=== PATIENT | female | born 1955 | race Caucasian/White ===

== ENCOUNTER 2016-12-26 13:07 | Emergency (ER) | payer MEDICARE ==
[~2016-12-26] VITALS: Ht 162.6 cm; Wt 87.3 kg
[~2016-12-26 13:07] MED LIST: ALBU18HF INH; AMLO5TAB2 PO; ASCO10007 PO; CERA453C2 TP; CHOL400T PO; CLOB15CR3 TOP; DEX1 PO; DOCU100C8 PO; FURO40TA4 PO; HYDR2TAB27 PO; LAMO100T2 PO; LEVO25TA5 PO; LORA10TA7 PO; MOME17SP NS; POTA10CA42 PO; PROP10DR4 OP; PROP20TA5 PO
[2016-12-26 13:14] VITALS: BP 167/75; PULSE 58; RESP 20; O2SAT 100
--- NOTE | 2016-12-26 14:19 | ED.REPORT ---
HPI-General Illness Date of Service Dec 26, 2016 ED Provider: Donna WELCH A 61 year old female with a history of hypertension, asthma and a pseudoseizure disorder presents to the ED complaining of dyspnea that began 3 weeks ago. Patient was seen at Urgent Care today and given nebulizer, CXR and brought to the ED with concern for pneumonia. Her symptoms initially began 3 weeks ago but she developed a productive cough approx one week ago. Patient reports that her coughing spasms leave her breathless. Associated symptoms include upper chest congestion, increasing constipation and nausea for the past 5 days. Her nausea is relieved by Gatorade and Broth. Nursing Notes Stated Complaint: DIZZY,WEAK Chief Complaint: Respiratory Complaints Nursing Notes Reviewed: Yes Allergies: Coded Allergies: Penicillins (Verified Allergy, Severe, UNKNOWN, 09/24/14) codeine (Verified Allergy, Severe, 09/24/14) hydrocodone (Verified Allergy, Severe, Abdominal Pain, 09/24/14) and dizziness and confusion infliximab (Verified Allergy, Severe, seizures, 12/26/16) morphine (Verified Allergy, Severe, Hallucinations, 09/24/14) oxycodone (Verified Allergy, Severe, Abdominal Pain, 09/24/14) and dizziness and confusion piroxicam (Verified Allergy, Severe, UNKNOWN, 09/24/14) propofol (Verified Allergy, Severe, 09/24/14) pt has known seizure disorder but believes propofol caused induction of seizures following colonoscopy in 2007 Sulfa (Sulfonamide Antibiotics) (Verified Allergy, Intermediate, Blistery yellow rash, 09/24/14) azathioprine (Verified Allergy, Intermediate, 09/24/14) carisoprodol (Verified Allergy, Intermediate, 09/24/14) etanercept (Verified Allergy, Intermediate, 09/24/14) levetiracetam (Verified Allergy, Intermediate, 09/24/14) lisinopril (Verified Allergy, Intermediate, 09/24/14) pregabalin (Verified Allergy, Intermediate, 09/24/14) diphenhydramine (Verified Allergy, Unknown, 09/24/14) hydrochlorothiazide (Verified Allergy, Unknown, 09/24/14) triamterene (Verified Allergy, Unknown, 09/24/14) topiramate (Verified Adverse Reaction, Severe, 09/24/14) Severe Mood Swings Uncoded Allergies: ARTIFICIAL SWEETNERS (Allergy, Severe, STARES INTO SPACE,DOESN'T KNOW NAME, ETC., 08/30/05) all seafood (Allergy, Mild, Anaphylaxis, 05/07/06) cantelope (Adverse Reaction, Intermediate, itching, 05/07/06) Scheduled Albuterol HFA (Proair HFA) 8.5 Gm Hfa.aer.ad 2 PUFFS INHALATION QID 2 puffs with spacer every 6 hours for the next week then decrease use as needed. Please dispense with spacer and instructions Clobetasol Propionate/Emoll (Clobetasol Emollient 0.05% Crm) 15 Gm Cream..g. 1 APPL TOP BID Furosemide (Furosemide) 40 Mg Tablet 40 MG PO DAILY Lamotrigine (Lamotrigine) 100 Mg Tablet 100 MG PO TID Loratadine (Loratadine) 10 Mg Tablet 10 MG PO DAILY Mometasone Furoate (Nasonex) 17 Gm [place].pump 2 SPRAY NS DAILY Prednisone (PredniSONE) 20 Mg Tablet 20 MG PO DAILY 2 pills 12/27, 1 pill 12/28 and , 1/2 pill on 12/30 and . Propranolol HCl (Propranolol HCl) 20 Mg Tablet 20 MG PO BID Propylene Glycol (Systane Balance) 10 Ml Drops 10 ML OP DAILY Scheduled PRN Albuterol Sulfate (Ventolin HFA Inhaler) 200 Puff/18 Gm Inhaler 2 PUFF INH Q4 PRN PRN For Wheezing Miscellaneous Medications Ceramides 1,3,6-11 (Cerave) 453 Gm Cream..g. 453 GM TP General Time Seen by MD: 14:17 Chief Complaint Other (Dyspnea) Hx Obtained From: Patient Arrived By: Walk-in Sudden in Onset?: No Onset Occurred: More than a week ago... (3 weeks) Symptom Duration: Since onset Associated with: Reports: Congestion, Cough, Fever (pt unsure ), Nausea Pertinent Negative: Pt denies other symptoms Exacerbated by: Drinking (Gatorade and broth ) Recent Healthcare: No recent hospitalization, Recent doctor visit Past Medical History Past Medical History Notes: Additional meds to those listed in med rec: lufitimide, propranolol is 80mgER and 10prn up to 60mg, cyclosporine, PCP: Eric Past Medical History 1. Pseudo seizures/systematic movement disorder. 2. Hypertension. 3. Seasonal asthma. 4. Eczema. 5. Rheumatoid arthritis. 6. Osteoarthritis. 7. Fibromyalgia. 8. Asthma 9. Edema 10. Thyroid nodules 11. Tremors Past Surgical History R knee arthroscopy 1979' Abd mass, hysterectomy 2005 Abd hernia repair 2008 Small bowel obstruction 2008 R knee arthroscopy 2009 Smoking History Never Smoker Social History Alcohol Use: Denies alcohol use Drug Use: Denies drug use Other Social History: Lives alone Ambulatory Status Independent Review of Systems Full Review of Systems Constitutional: Reports: Fatigue, Fever Cardiovascular: Reports: Dyspnea on exertion (and with talking), Orthopnea ( significant increased cough), Denies: Edema GI: Denies: Diarrhea, Vomiting Female: Denies: Dysuria Musculoskeletal: Reports: Joint pain (arhtritis pain, fairly quiescent not) Endocrine: Reports: Weight gain (? due to constipation), Denies: Polyuria Neurologic: Reports: Abnormal movement (baseline tremor) Psychiatric: Denies: Agitation, Anxiety Complete sys rev & neg: except as marked. Physical Exam Vital Signs Vital Signs Date Time Temp Pulse Resp B/P Pulse Ox O2 Delivery O2 Flow Rate FiO2 12/26/16 20:39 36.9 64 13 200/92 96 Room Air 12/26/16 19:42 62 13 164/86 94 Room Air 12/26/16 17:32 55 20 99 Room Air 12/26/16 13:14 36.6 58 20 167/75 100 Room Air Initial VS: Reviewed Head / Eyes: Atraumatic, Normocephalic, PERRL Neck: Supple, Non-tender, Full range of motion Extremities: Vascular intact, Neuro intact, No swelling, No tenderness Skin: Warm, Dry, No cyanosis Psychiatric: Mood/affect normal, Behavior normal, Normal thought content Respiratory / Chest: Atraumatic, No rales, No rhonchi Wheezing / Retractions: Positive: Wheeze insp/exp diffuse ( Diffuse scattered wheezes) Cardiovascular: Heart rate NL, Regular rhythm, Heart sounds NL, No murmurs CARDIO: No lower extremity edema Neurologic: Oriented X3, Speech NL, No motor deficits, No sensory deficits NERUO: Tremulous but speaking in full sentences. Interpretation & Diagnostics Echocardiogram 2014 IMPRESSION: Ejection Fracture Lab Results Interpretation Result Diagram: 12/26/16 1450 12/26/16 1450 Test 12/26/16 14:46 12/26/16 14:50 Urine Color Straw (YELLOW) Urine Appearance Clear (CLEAR,HAZY) Urine pH 6.0 (5.0-8.0) Urine Specific [place] 1.010 (1.003-1.035) Urine Protein Negativemg/dL (NEG,TRACE) Urine Glucose (UA) Negativemg/dL (NEGATIVE) Urine Ketones Negativemg/dL (NEGATIVE) Urine Occult Blood Negative (NEGATIVE) Urine Nitrite Negative (NEGATIVE) Urine Bilirubin Negative (NEGATIVE) Urine Urobilinogen Normalmg/dL (NORMAL) Urine Leukocyte Esterase Negative (NEGATIVE) Urine RBC 0-2/hpf (0-2) Urine WBC 0-5/hpf (0-5) Urine Epithelial Cells Occasional/hpf (NONE-MOD) Urine Crystals Oxalic acid crystals (NONE Urine Bacteria None/hpf (NONE-FEW) Urine Hyaline Casts Occasional/lpf (NONE) Urine Granular Casts None seen (NONE SEEN) Urine Waxy Casts None seen (NONE SEEN) Urine Red Blood Cell Casts None seen (NONE SEEN) Urine White Blood Cell Casts None seen (NONE SEEN) Urine Mucus None seen (None Seen) Urine Trichomonas None seen (NONE SEEN) Urine Yeast None (NONE SEEN) Urinalysis Comment None Urine Culture Reflexed Not indicated White Blood Count 3.8th/mm3 (3.8-10.1) Red Blood Count 4.10mil/mm3 (3.90-5.20) Hemoglobin 10.9g/dL (12.0-15.6) Hematocrit 34.0% (35.0-46.0) Mean Corpuscular Volume 82.9fL (81-100) Mean Corpuscular Hemoglobin 26.6pg (27.0-35.0) Mean Corpuscular Hemoglobin Concent 32.1% (32.0-37.0) Red Cell Distribution Width 14.3% (12.3-15.4) Platelet Count 198bil/L (150-400) Neutrophils (%) (Auto) 62.7% (40-74) Lymphocytes (%) (Auto) 21.3% (14-46) Monocytes (%) (Auto) 14.1% (4-12) Eosinophils (%) (Auto) 1.3% (0-5) Basophils (%) (Auto) 0.3% (0-3) D-Dimer 2.0mg/L (<0.50) Sodium Level 138mEq/L (134-144) Potassium Level 3.7mEq/L (3.5-5.2) Chloride Level 101mEq/L (97-108) Carbon Dioxide Level 22mmol/L (18-29) Blood Urea Nitrogen 17mg/dL (8-27) Creatinine 1.11mg/dL (0.57-1.00) Estimat Glomerular Filtration Rate 72mL/min (>59) Glucose Level 94mg/dL (60-99) Lactic Acid Level 1.2mmol/L (0.4-2.0) Calcium Level 9.1mg/dL (8.5-10.1) Total Bilirubin 0.3mg/dL (0.0-1.2) Aspartate Amino Transf (AST/SGOT) 10U/L (0-50) Alanine Aminotransferase (ALT/SGPT) 6U/L (0-32) Alkaline Phosphatase 117U/L (25-165) Troponin T < 0.010ug/L (0.0-0.011) Pro-B-Type Natriuretic Peptide 926.8pg/mL (0-287) Total Protein 6.7g/dL (6.4-8.4) Albumin 3.7g/dL (3.4-5.0) Procalcitonin 0.05ng/mL (0.00-0.08) ECG Interpretation ECG Interpretation: Rate 49 bpm New atrial fibrillation Rate controlled No ischemia Left ventricular hypertrophy Prior 09/24/14 - New Afib Time: 15:06 Interpreted by: ED physician X-Ray Chest Interpretation Chest Xray Interpretation: IMPRESSION: No acute pulmonary process. Dictated by: Nahomy Rodriguez M.D. on 12/26/2016 at 11:28 Interpretation / Wet Read by: Interpret - Radiologist CT Chest Interpretation IMPRESSION: New 1.6 cm pulmonary nodule seen in the anterior right middle lobe. This is suspicious for metastatic/malignant etiology. Recommend further assessment with PET/CT. No evidence of pulmonary embolism. No acute consolidation. Marked substernal goiter. Findings personally telephoned and discussed with Dr. Thompson in the emergency Department 1711 hours 12/26/16. Dictated by: Wesley Campo M.D. on 12/26/2016 at 16:55 Study type: CT pulm angiogram Interpretation / Wet Read by: Interpret - Radiologist Re-Eval/Medical Decision Time of Eval: 15:07 Patient Status: Condition improved Re-Evaluation/Progress Note: Patient is rechecked. She is informed of her EKG results, lab results and diagnosis. Time of Eval: 17:03 Patient Status: Condition improved Re-Evaluation/Progress Note: Patient is rechecked and is informed of the plan to obtain a CT scan after lab results. All of the patient's questions are addressed. Time of Eval: 18:51 Patient Status: Condition improved Re-Evaluation/Progress Note: Patient reports that she is feeling much better. Consultation #1: Referral / Consult Name: Wesley Campo MD Call Returned at: 17:14 Pest Control Chemical Technician: Agrees with eval, Agrees with plan Note: Radiology Noticed a nodule on the CT scan Recommend PET scan wan determine if surgical biopsy required No PE Consultation #2: Referral / Consult Name: Carlos A Little MD Consulted With: Primary care physician Call Returned at: 19:25 Pest Control Chemical Technician: Will see patient, Will see in office Note: discussed incidental lung nodule and recommendation for PET scan. He will share with Shante Alexis to get this scheuduled Counseled Regarding: Diagnosis, Lab results, Need for follow-up, When/why to return to ED Discharge & Departure Primary Impression: Asthma exacerbation Additional Impressions: Reactive airway disease Asthma severity: unspecified severity Asthma complication type: uncomplicated Qualified Code: J45.909 - Unspecified asthma, uncomplicated Lung nodule Disposition: Home Discharge Condition All VS Reviewed: Yes Condition: Stable Patient Instructions: Asthma (ED), Reactive Airways Disease (ED) Additional Instructions: Thank you for trusting us with your care this evening. Your emergency department evaluation results are reassuring that there is no dangerous cause for concern at this time and I believe your symptoms are likely due to asthma exacerbation. Your CT scan did reveal a right sided lung nodule and I recommend you obtain a PET scan for further evaluation. Follow up with Dr. Priest in the next 2-3 days to schedule a PET scan. Take the albuterol nebulizer as directed and Please take prednisone to help with the inflammation. Please return to the emergency department immediately for any new or worsening conditions including any difficulty breathing, weaknesses, lightheadedness, numbness/tingling, fevers, or chest pain. Referrals: Shante Priest (PCP) Scribe Attestation Portions of this note were transcribed by Tristin Bello. I, Dr. Thompson personally performed the history, physical exam and medical decision-making; I reviewed and confirmed the accuracy of the information in the transcribed note. Signed by: Juvenal Morris, 12/26/[id number]. copies to: Shante Priest Shawna L MD Dec 26, 2016 14:19 TRISTIN BELLO Dec 26, 2016 15:09
[2016-12-26] MEDS ORDERED: 0.9% Sodium Chloride 1,000 ML IV ONE (14:41)
[2016-12-26] MEDS ORDERED: Magnesium Sulf 2 Gm/50mL Water 2 GM in IV Premix 1 EACH IV ONE (14:45)
[2016-12-26] MEDS ORDERED: MethylprednisoLONE Sodium Succinate 62.5 mg/mL 2 mL Inj IVPUSH ONE (14:45)
[2016-12-26] MEDS ORDERED: Albuterol-Ipratropium 3 mL Inhalation Solution NEB ONE (14:45)
[2016-12-26 15:20] LABS: APPEARANCE,URINE CLEAR (CLEAR,HAZY); COLOR,URINE STRAW (YELLOW); OCCULT BLOOD,URINE NEGATIVE (NEGATIVE)
[2016-12-26 15:21] LABS: UROBILINOGEN,URINE NORMAL (NORMAL)
[2016-12-26 15:28] LABS: BASOPHILS % (AUTO) 0.3 % (0-3); EOSINOPHILS % (AUTO) 1.3 % (0-5); MONOCYTES % (AUTO) 14.1 % (4-12); Mean Corpuscular Hemoglobin 26.6 pg (27.0-35.0); Mean Corpuscular Volume 82.9 fL (81-100); NEUTROPHILS % (AUTO) 62.7 % (40-74); Platelet Count 198 bil/L (150-400)
[2016-12-26 15:57] LABS: TROPONIN T < 0.010 ug/L (0.0-0.011)
--- NOTE | 2016-12-26 17:14 | DRSVH ---
PROCEDURE: CT ANGIO CHEST PULMONARY EMBOLISM ([id number]) INDICATIONS: cough x 3 weeks, d dimer 2, new afib TECHNIQUE: After the administration of intravenous contrast, 2 mm thick sections acquired from the pulmonary api laurita to the posterior costophrenic angles. 3-dimensional maximum intensity projection (MIP) coronal a nd sagittal reformats were then acquired through the thorax. For radiation dose reduction, the follo wing was used: automated exposure control, adjustment of mA and/or kV according to patient size. COMPARISON: [facility], CT, ABD/PELVIS W/CON (PNL), 09/24/2014, 11:52. FINDINGS: Image quality: Excellent. Pulmonary arteries: Pulmonary arteries are normal in size, and demonstrate no intraluminal filling d efects to suggest central pulmonary embolism. Lungs and pleura: No acute consolidation. There is a new 1.6 x 1.1 cm nodule in the anterior right mi ddle lobe No pleural effusions or pneumothorax. Central and peripheral airways are patent. Mediastinum: Heart size is enlarged, without pericardial effusion. No mediastinal or hilar adenopat hy. Thoracic aorta is normal in caliber and enhancement. Esophagus is normal in caliber, without hi atal hernia. Bones and chest wall: No suspicious bony lesions. T11 vertebral body hemangioma with internal trabe culations. Ribs and thoracic spine appear intact throughout. Thyroid gland is markedly enlarged, and there is substernal extension. No axillary or supraclavicular adenopathy. Abdomen: Visualized upper abdominal solid organs appear normal in the early arterial phase of enhanc ement. IMPRESSION: New 1.6 cm pulmonary nodule seen in the anterior right middle lobe. This is suspicious for metastatic /malignant etiology. Recommend further assessment with PET/CT. No evidence of pulmonary embolism. No acute consolidation. Marked substernal goiter. Findings personally telephoned and discussed with Dr. Thompson in the emergency Department 1711 hours 12/26/16. Dictated by: Wesley Campo M.D. on 12/26/2016 at 16:55 Approved by: Wesley Campo M.D. on 12/26/2016 at 17:12
[2016-12-26 17:32] VITALS: PULSE 55; RESP 20; O2SAT 99
[2016-12-26] MEDS ORDERED: ALBU8.5H2 INHALATION (19:12)
[2016-12-26] MEDS ORDERED: PRE20 PO (19:12)
[2016-12-26 19:42] VITALS: BP 164/86; PULSE 62; RESP 13; O2SAT 94
[2016-12-26 20:39] VITALS: BP 200/92; PULSE 64; RESP 13; O2SAT 96
[2017-02-17] MEDS ORDERED: CALC600T12 PO (13:15)
[2017-02-17] MEDS ORDERED: LOSA25TA21 PO (13:15)
[2017-02-17] MEDS ORDERED: ASCO100089 PO (13:15)
[2017-02-17] MEDS ORDERED: PROP10TA8 PO (13:15)
[2017-02-17] MEDS ORDERED: BECL8.7A6 INHALATION (13:15)
[2017-02-17] MEDS ORDERED: PROP80CA2 PO (13:15)
[2017-02-17] MEDS ORDERED: DEX1 PO (13:15)
[2017-02-17] MEDS ORDERED: CHOL200047 PO (13:15)
[2017-02-17] MEDS ORDERED: POLY17PO6 PO (13:15)
[2017-02-17] MEDS ORDERED: [UNRECOGNIZED DRUG - CODE] PO (13:15)
[2017-02-17] MEDS ORDERED: LEFL20TA18 PO (13:15)
== END 2016-12-26 20:42 | disposition home or self-care (01) ==
LOC: SED 13:07
DX: J45.901 Unspecified asthma with (acute) exacerbation (principal); R91.1 Solitary pulmonary nodule; I10 Essential (primary) hypertension; M06.9 Rheumatoid arthritis, unspecified; M79.7 Fibromyalgia; Z88.0 Allergy status to penicillin; Z88.2 Allergy status to sulfonamides; Z88.5 Allergy status to narcotic agent; Z88.8 Allergy status to other drugs, medicaments and biological substances
CPT/HCPCS: 36415; 71275; 80053; 81000; 83605; 83880; 84145; 84484; 85025; 85379; 87040; 93005; 94664; 96361; 96374; 96375; 99285; J2930; J7030; J7620; Q9967

== ENCOUNTER 2017-03-25 19:53 | Inpatient (IN) | payer MEDICARE ==
[~2017-03-25] VITALS: Ht 162.6 cm; Wt 83.9 kg
[~2017-03-25 19:53] MED LIST changes: +ALBU8.5H2 INHALATION; -AMLO5TAB2 PO; -ASCO10007 PO; +ASCO100089 PO; +BECL8.7A6 INHALATION; +CALC600T12 PO; -CERA453C2 TP; +CHOL200047 PO; -CHOL400T PO; -DOCU100C8 PO; -HYDR2TAB27 PO; +LEFL20TA18 PO; -LEVO25TA5 PO; +LOSA25TA21 PO; +POLY17PO6 PO; -POTA10CA42 PO; -PROP10DR4 OP; +PROP10TA8 PO; -PROP20TA5 PO; +PROP80CA2 PO; +[UNRECOGNIZED DRUG - CODE] PO
[2017-03-25 20:06] VITALS: BP 148/65; PULSE 115; RESP 20; O2SAT 96
[2017-03-25 20:40] LABS: BASOPHILS % (AUTO) 0.3 % (0-3); EOSINOPHILS % (AUTO) 3.7 % (0-5); MONOCYTES % (AUTO) 13.5 % (4-12); Mean Corpuscular Hemoglobin 25.7 pg (27.0-35.0); Mean Corpuscular Volume 79.3 fL (81-100); NEUTROPHILS % (AUTO) 67.8 % (40-74); Platelet Count 225 bil/L (150-400)
[2017-03-25 20:44] VITALS: BP 149/78; PULSE 108; RESP 21; O2SAT 95
--- NOTE | 2017-03-25 20:46 | ED.REPORT ---
HPI-General Illness Date of Service Mar 25, 2017 ED Provider: Dmitry Mora Patient is a 62 year old female with a hx of systematic movement disorder, HTN, and tremors who presents to the ED via EMS s/p an episode of altered mental status. Per EMS, her friend called medics after patient called her friend saying she didn't know what was going on around her. She is amnestic to the event and the last thing she remembers is coming home and sitting in her chair. She states "All I know is I was tired. Apparently I called a couple people". Her only complaints are gradually worsening fatigue onset a few weeks ago, nausea with eating, bladder control dysfunction, and lightheadedness (onset a few days ago). She denies chest pain, fever, chills, vision changes, shortness of breath, melena, hematochezia, vaginal bleeding or discharge, dysuria, or any other symptoms. With previous seizures, she has been able to remember what happens. No difficulty speaking, no unilateral weakness, numbness, or tingling. No other complaints at this time. Nursing Notes Stated Complaint: GENERAL MALAISE Chief Complaint: Neuro Symptoms/ Deficits Nursing Notes Reviewed: Yes Allergies: Coded Allergies: Penicillins (Verified Allergy, Severe, UNKNOWN, 09/24/14) codeine (Verified Allergy, Severe, 09/24/14) hydrocodone (Verified Allergy, Severe, Abdominal Pain, 09/24/14) and dizziness and confusion infliximab (Verified Allergy, Severe, seizures, 12/26/16) morphine (Verified Allergy, Severe, Hallucinations, 09/24/14) oxycodone (Verified Allergy, Severe, Abdominal Pain, 09/24/14) and dizziness and confusion piroxicam (Verified Allergy, Severe, UNKNOWN, 09/24/14) propofol (Verified Allergy, Severe, 09/24/14) pt has known seizure disorder but believes propofol caused induction of seizures following colonoscopy in 2007 Sulfa (Sulfonamide Antibiotics) (Verified Allergy, Intermediate, Blistery yellow rash, 09/24/14) azathioprine (Verified Allergy, Intermediate, 09/24/14) carisoprodol (Verified Allergy, Intermediate, 09/24/14) etanercept (Verified Allergy, Intermediate, 09/24/14) levetiracetam (Verified Allergy, Intermediate, 09/24/14) lisinopril (Verified Allergy, Intermediate, 09/24/14) pregabalin (Verified Allergy, Intermediate, 09/24/14) diphenhydramine (Verified Allergy, Unknown, 09/24/14) hydrochlorothiazide (Verified Allergy, Unknown, 09/24/14) triamterene (Verified Allergy, Unknown, 09/24/14) topiramate (Verified Adverse Reaction, Severe, 09/24/14) Severe Mood Swings Uncoded Allergies: ARTIFICIAL SWEETNERS (Allergy, Severe, STARES INTO SPACE,DOESN'T KNOW NAME, ETC., 08/30/05) all seafood (Allergy, Mild, Anaphylaxis, 05/07/06) cantelope (Adverse Reaction, Intermediate, itching, 05/07/06) Scheduled Albuterol HFA (Proair HFA) 8.5 Gm Hfa.aer.ad 2 PUFFS INHALATION QID 2 puffs with spacer every 6 hours for the next week then decrease use as needed. Please dispense with spacer and instructions Ascorbic Acid (Vitamin C) 1,000 Mg Tab.chew 1,000 MG PO BID Beclomethasone Dipropionate (Qvar) 8.7 Gm Aer.w.adap 1 PUFF INHALATION BID Calcium Carbonate (Calcium) 600 Mg Tablet 2 TAB PO DAILY Cholecalciferol (Vitamin D3) (Vitamin D3) 2,000 Unit Capsule 2,000 UNIT PO DAILY Clobetasol Propionate/Emoll (Clobetasol Emollient 0.05% Crm) 15 Gm Cream..g. 1 APPL TOP BID Cyclosporine, Modified (Cyclosporine) 100 Mg/1 Ml Solution 100 MG PO TID Furosemide (Furosemide) 40 Mg Tablet 40 MG PO DAILY Lamotrigine (Lamotrigine) 100 Mg Tablet 100 MG PO TID Leflunomide (Leflunomide) 20 Mg Tablet 20 MG PO DAILY Loratadine (Loratadine) 10 Mg Tablet 10 MG PO DAILY Losartan Potassium (Losartan Potassium) 25 Mg Tablet 25 MG PO DAILY Mometasone Furoate (Nasonex) 17 Gm Hiller.pump 2 SPRAY NS DAILY Polyethylene Glycol 3350 (Miralax) 17 Gm Powd.pack 17 GM PO DAILY Propranolol ER (Propranolol ER) 80 Mg Cap.sa.24h 80 MG PO DAILY Propranolol HCl (Propranolol HCl) 10 Mg Tablet 10-20 MG PO TID Scheduled PRN Albuterol Sulfate (Ventolin HFA Inhaler) 200 Puff/18 Gm Inhaler 2 PUFF INH Q4 PRN PRN For Wheezing Dexamethasone (Dexamethasone) 1 Mg Tab 3 MG PO DAILY PRN PRN For Wheezing Take for 3-5 days during flares General Time Seen by MD: 20:46 Chief Complaint Altered mental status Hx Obtained From: Patient, EMS Arrived By: Ambulance Sudden in Onset?: Yes Onset Occurred: Just prior to arrival Severity: Current: No pain currently Severity: Maximum: No pain Associated with: Reports: Nausea Context Related History: Reports Seizure disorder Similar Sx Previous: No Past Medical History Past Medical History Notes: Additional meds to those listed in med rec: lufitimide, propranolol is 80mgER and 10prn up to 60mg, cyclosporine, PCP: Eric Past Medical History 1. Pseudo seizures/systematic movement disorder. 2. Hypertension. 3. Seasonal asthma. 4. Eczema. 5. Rheumatoid arthritis. 6. Osteoarthritis. 7. Fibromyalgia. 8. Asthma 9. Edema 10. Thyroid nodules 11. Tremors 12. Fibromyalgia Past Surgical History R knee arthroscopy Abd mass, hysterectomy 2004 Abd hernia repair 2008 Small bowel obstruction 2008 R knee arthroscopy 2009 HErnia repair Reports: Cholecystectomy, Hysterectomy Smoking History Never Smoker Social History Alcohol Use: Denies alcohol use Drug Use: Denies drug use Other Social History: Lives alone Ambulatory Status Independent Review of Systems Full Review of Systems Constitutional: Reports: Fatigue, Denies: Chills, Fever Respiratory: Denies: Shortness of breath Cardiovascular: Denies: Chest pain GI: Reports: Nausea, Denies: Hematochezia, Melena Female: Denies: Dysuria, Vaginal bleeding - abnl, Vaginal discharge Neurologic: Reports: Bladder dysfunction, Lightheaded, Denies: Vision change Complete sys rev & neg: except as marked. Physical Exam Nursing note and vitals reviewed. Constitutional: Well-developed, well-nourished elderly female. Not diaphoretic. Head: Normocephalic and atraumatic. Mouth/Throat: Oropharynx is clear and moist. No oropharyngeal exudate. Eyes: EOM are normal. Pupils are equal, round, and reactive to light. Neck: Supple, no tracheal deviation. Cardiovascular: Tachycardic, regular rhythm. Equal and intact distal pulses throughout. Pulmonary/Chest: Effort normal and breath sounds normal. No respiratory distress. Abdominal: Soft. No distension. There is no tenderness, rebound, or guarding. Musculoskeletal: Range of motion grossly intact, moving all extremities. Neurological: AOx3. Grossly nonfocal exam with equal strength and sensation to bilateral upper and lower extremities. Cranial nerves grossly intact. Speech normal. Baseline tremor. Skin: Warm and dry, no rashes or pallor appreciated. Vital Signs Vital Signs Date Time Temp Pulse Resp B/P Pulse Ox O2 Delivery O2 Flow Rate FiO2 03/25/17 20:44 108 21 149/78 95 Room Air 03/25/17 20:06 36.7 115 20 148/65 96 Room Air Interpretation & Diagnostics Lab Results Interpretation Result Diagram: 03/25/17 2015 03/25/17 2015 Test 03/25/17 20:15 03/25/17 20:40 03/25/17 21:05 White Blood Count 3.3th/mm3 (3.8-10.1) Red Blood Count 3.77mil/mm3 (3.90-5.20) Hemoglobin 9.7g/dL (12.0-15.6) Hematocrit 29.9% (35.0-46.0) Mean Corpuscular Volume 79.3fL (81-100) Mean Corpuscular Hemoglobin 25.7pg (27.0-35.0) Mean Corpuscular Hemoglobin Concent 32.4% (32.0-37.0) Red Cell Distribution Width 14.3% (12.3-15.4) Platelet Count 225bil/L (150-400) Neutrophils (%) (Auto) 67.8% (40-74) Lymphocytes (%) (Auto) 14.4% (14-46) Monocytes (%) (Auto) 13.5% (4-12) Eosinophils (%) (Auto) 3.7% (0-5) Basophils (%) (Auto) 0.3% (0-3) Sodium Level 130mEq/L (134-144) Potassium Level 3.2mEq/L (3.5-5.2) Chloride Level 94mEq/L (97-108) Carbon Dioxide Level 18mmol/L (18-29) Blood Urea Nitrogen 28mg/dL (8-27) Creatinine 1.34mg/dL (0.57-1.00) Estimat Glomerular Filtration Rate 57mL/min (>59) Glucose Level 141mg/dL (60-99) Calcium Level 8.7mg/dL (8.5-10.1) Magnesium Level 1.8mg/dL (1.6-2.6) Total Bilirubin 0.2mg/dL (0.0-1.2) Aspartate Amino Transf (AST/SGOT) 17U/L (0-50) Alanine Aminotransferase (ALT/SGPT) 8U/L (0-32) Alkaline Phosphatase 206U/L (25-165) Troponin T < 0.010ug/L (0.0-0.011) Total Protein 6.5g/dL (6.4-8.4) Albumin 2.4g/dL (3.4-5.0) Hold [place] Top Tube Received (Received) Urine Color Yellow (YELLOW) Urine Appearance Hazy (CLEAR,HAZY) Urine pH 5.0 (5.0-8.0) Urine Specific [place] 1.020 (1.003-1.035) Urine Protein Tracemg/dL (NEG,TRACE) Urine Glucose (UA) Negativemg/dL (NEGATIVE) Urine Ketones Negativemg/dL (NEGATIVE) Urine Occult Blood Negative (NEGATIVE) Urine Nitrite Negative (NEGATIVE) Urine Bilirubin Negative (NEGATIVE) Urine Urobilinogen Normalmg/dL (NORMAL) Urine Leukocyte Esterase Negative (NEGATIVE) Urine RBC 0-2/hpf (0-2) Urine WBC 0-5/hpf (0-5) Urine Epithelial Cells Few/hpf (NONE-MOD) Urine Crystals Amorphous urates (NONE Urine Bacteria Few/hpf (NONE-FEW) Urine Hyaline Casts None/lpf (NONE) Urine Granular Casts None seen (NONE SEEN) Urine Waxy Casts None seen (NONE SEEN) Urine Red Blood Cell Casts None seen (NONE SEEN) Urine White Blood Cell Casts None seen (NONE SEEN) Urine Mucus None seen (None Seen) Urine Trichomonas None seen (NONE SEEN) Urine Yeast None (NONE SEEN) Urinalysis Comment None Urine Culture Reflexed Not indicated Hold Urine Received (Received) Hold Red Top Tube Received (Received) ECG Interpretation ECG Interpretation: sinus tachycardia with a rate of 106 LVH Time: 20:25 Interpreted by: ED physician CT Head Interpretation IMPRESSION: 1. Ventriculomegaly which could be due to normal pressure hydrocephalus versus central volume loss. Please correlate with clinical findings. 2. Exam otherwise negative for acute disease process. Dictated by: Nazia Snow MD, PhD on 03/25/2017 at 20:58 Approved by: Nazia Snow MD, PhD on 03/25/2017 at 21:00 Study: Head CT no contrast Interpretation / Wet Read by: Interpret - Radiologist Re-Eval/Medical Decision Med Decision/Clinical Course In summary, 62-year-old female presenting to the ED for evaluation of an episode of altered mental status earlier this evening. She has a grossly nonfocal neuro exam, has had seizure-like episodes in the past that were similar. No unilateral symptoms or exam findings, good speech. Does not seem consistent with acute stroke at this time. CT scan negative for acute hemorrhage, however does show some ventriculomegaly that may be consistent with normal pressure hydrocephalus, though no previous CT for comparison. Her laboratory studies do show a sodium of 130. Elevated creatinine c/w JACEY. Unclear etiology of her symptoms at this time, however given the above, plan admission for further evaluation and management Time of Eval: 23:54 Re-Evaluation/Progress Note: Discussed plan for admission. Patient understands and agrees with plan. All questions addressed at this time. Counseled Regarding: Diagnosis, Lab results, Need for admission Discharge & Departure Primary Impression: Altered mental status Altered mental status type: unspecified Qualified Code: R41.82 - Altered mental status, unspecified Additional Impression: JACEY (acute kidney injury) Disposition: ADMITTED TO HOSPITAL Discharge Condition All VS Reviewed: Yes Condition: Stable Referrals: Shante Priest (PCP) Scribe Attestation Portions of this note were transcribed by Cathi Navarro. I, Dr. Mora personally performed the history, physical exam and medical decision-making; I reviewed and confirmed the accuracy of the information in the transcribed note. Signed by: Cathi Navarro 03/25/17, [id number] copies to: Shante Priest William B MD Mar 25, 2017 20:46 CATHI NAVARRO Mar 25, 2017 22:53
--- NOTE | 2017-03-25 21:01 | DRSVH ---
PROCEDURE: CT BRAIN WITHOUT CONTRAST ([id number]) INDICATIONS: confusion, mental status change TECHNIQUE: Noncontrast 4.5 mm thick angled axial sections acquired from the foramen magnum to the vertex, with c oronal reformats. COMPARISON: [facility], CT, BRAIN W/O CONTRAST, 06/18/2013, 9:51. FINDINGS: Image quality: Excellent. CSF spaces: Basal cisterns are patent. No extra-axial fluid collections. Mild ventriculomegaly note d. Brain: No intracranial bleeds or masses. There is cerebral volume loss for age, with resultant vent ricular and sulcal prominence. There are periventricular and deep white matter chronic small vessel ischemic changes. There is intracranial internal carotid artery atherosclerosis. Skull and face: Calvarium and visualized facial bones appear intact, without suspicious lesions. Sinuses: Visualized sinuses and mastoids are clear. IMPRESSION: 1. Ventriculomegaly which could be due to normal pressure hydrocephalus versus central volume loss. Please correlate with clinical findings. 2. Exam otherwise negative for acute disease process. Dictated by: Nazia Snow MD, PhD on 03/25/2017 at 20:58 Approved by: Nazia Snow MD, PhD on 03/25/2017 at 21:00
[2017-03-25 21:03] LABS: TROPONIN T < 0.010 ug/L (0.0-0.011)
[2017-03-25 21:13] LABS: Magnesium 1.8 mg/dL (1.6-2.6)
[2017-03-25 21:22] LABS: APPEARANCE,URINE HAZY (CLEAR,HAZY); COLOR,URINE YELLOW (YELLOW); OCCULT BLOOD,URINE NEGATIVE (NEGATIVE); UROBILINOGEN,URINE NORMAL (NORMAL)
[2017-03-25] MEDS ORDERED: 0.9% Sodium Chloride 1,000 ML IV ONE ×2 (22:54→23:56)
[2017-03-26] VITALS (10 sets, daily range): BP systolic 128–189; BP diastolic 50–100; PULSE 68–97; RESP 14–18; O2SAT 93–97
[2017-03-26] MEDS ORDERED: Potassium Chloride Inj 20 MEQ in Dextrose 5% 250 ML IV ONE ×2
[2017-03-26] MEDS ORDERED: Alum-Mag Hydrox-Simeth 30 mL Suspension PO PRN (00:10)
[2017-03-26] MEDS ORDERED: Ondansetron 2 mg/mL 2 mL Inj IVPUSH PRN (00:10)
--- NOTE | 2017-03-26 00:14 | PCM.HPMED ---
Subjective Date of Service Mar 26, 2017 Primary Provider: Admitting Physician: Primary Care Physician: Shante Priest Attending Physician: Admit Status: From the Emergency Department, Full Admit, Remote Telemetry Chief Complaint: Confusion History of Present Illness: Erna Artis is a 62 year old female with Rheumatoid arthritis, Hypertension , Seizure disorder and tremors who presents to [facility] emergency department via EMS due confusion Patient was a poor historian with difficulty remembering events prior to admission. Per EMS, her friend called medics after patient called her friend saying she didn't know what was going on around her. Patient recalled last thing she remembers is coming home and sitting in her chair. She states "All I know is I was tired. Apparently I called a couple people". Denies any diarrhea or vomiting. Her only complaints are gradually worsening fatigue onset a few weeks ago, nausea with decreased appetite and lightheadedness. She denies loss of consciousness. She denies chest pain, fever, chills, vision changes, shortness of breath. Denies any sick contacts as she lives alone. Denies any new medications. Case discussed with Dr Mora, CT head negative. Lab results consistent with dehydration and Renal failure. Review of Systems: Pertinent positives as noted in HPI. All other systems were reviewed and are negative Allergies Coded Allergies: Penicillins (Verified Allergy, Severe, UNKNOWN, 09/24/14) codeine (Verified Allergy, Severe, 09/24/14) hydrocodone (Verified Allergy, Severe, Abdominal Pain, 09/24/14) and dizziness and confusion infliximab (Verified Allergy, Severe, seizures, 12/26/16) morphine (Verified Allergy, Severe, Hallucinations, 09/24/14) oxycodone (Verified Allergy, Severe, Abdominal Pain, 09/24/14) and dizziness and confusion piroxicam (Verified Allergy, Severe, UNKNOWN, 09/24/14) propofol (Verified Allergy, Severe, 09/24/14) pt has known seizure disorder but believes propofol caused induction of seizures following colonoscopy in 2007 Sulfa (Sulfonamide Antibiotics) (Verified Allergy, Intermediate, Blistery yellow rash, 09/24/14) azathioprine (Verified Allergy, Intermediate, 09/24/14) carisoprodol (Verified Allergy, Intermediate, 09/24/14) etanercept (Verified Allergy, Intermediate, 09/24/14) levetiracetam (Verified Allergy, Intermediate, 09/24/14) lisinopril (Verified Allergy, Intermediate, 09/24/14) pregabalin (Verified Allergy, Intermediate, 09/24/14) diphenhydramine (Verified Allergy, Unknown, 09/24/14) hydrochlorothiazide (Verified Allergy, Unknown, 09/24/14) triamterene (Verified Allergy, Unknown, 09/24/14) topiramate (Verified Adverse Reaction, Severe, 09/24/14) Severe Mood Swings Uncoded Allergies: ARTIFICIAL SWEETNERS (Allergy, Severe, STARES INTO SPACE,DOESN'T KNOW NAME, ETC., 08/30/05) all seafood (Allergy, Mild, Anaphylaxis, 05/07/06) cantelope (Adverse Reaction, Intermediate, itching, 05/07/06) Home Medications From [facility], not yet confirmed Chandra Erna Radha. [id number] 03/24/2017 03:40 PM 10/11 Calcium 600 600 mg (1,500 mg) tablet take 2 tablets daily clobetasol 0.05 % topical ointment apply1-2 times /day a thin layer to the affected area(s) as needed until resolution (max 2 wks/significant flare) cyclosporine modified 100 mg capsule TAKE one CAPSULE three times daily dexamethasone 1 mg tablet Take 3 tablets daily by oral route for 3-5 days during flares FUROSEMIDE 20 MG Tablet TAKE 1 AND 1/2 TABLETS TO 2 TABLETS DAILY lamotrigine 100 mg tablet take 1 tablet by oral route 3 times every day leflunomide 20 mg tablet TAKE 1 TABLET EVERY DAY loratadine 10 mg tablet take 1 tablet by oral route every day losartan 25 mg tablet take 1 Tablet by oral route every day Miralax 17 gram/dose oral powder take (17G) by oral route every day mixed with 8 oz. water, juice, soda, coffee or tea Nasonex 50 mcg/actuation [place] spray 2 spray by intranasal route every day in each nostril omeprazole 20 mg capsule,delayed release take 1 capsule by oral route every day 30 minutes to 1 hour before a meal ProAir HFA 90 mcg/actuation aerosol inhaler inhale 2 puff by inhalation route every 4 - 6 hours as needed propranolol 10 mg tablet take 1- 2 tablet by oral route 3 times every day propranolol ER 80 mg capsule,24 hr,extended release take 1 capsule by oral route every day Qvar 80 mcg/actuation Metered Aerosol oral inhaler inhale 1 puff by inhalation route 2 times every day Vitamin C 1,000 mg tablet take 1 tablet by oral route twice daily Vitamin D3 2,000 unit capsule take 1 tablet daily PMH Allergies. Seasonal asthma. Eczema. Chronic leg edema. Fibromyalgia. Hypertension. Osteoarthritis. Rheumatoid arthritis, on disease modifying agents. Seizures. Sinus issues. Thyroid nodules on levothyroxine. Tremors. Pulmonary nodules now determined to be benign based of PET scan findings . Surgical History 1. Right knee arthroscopy x2. 2. Hysterectomy with removal of abdominal mass. 3. Abdominal hernia repair. 4. Surgery for small-bowel obstruction. Family History There are heart problems on her mother's side, rheumatoid arthritis and diabetes on both sides of the family. Social History Hx Alcohol Use: No Hx Substance Use: No Hx Tobacco Use: No Smoking Status: Never Smoker Living Arrangement: Alone Exam Vital Signs Vital Sign - Last Date Time Temp Pulse Resp B/P Pulse Ox O2 Delivery O2 Flow Rate FiO2 03/25/17 20:44 108 21 149/78 95 Room Air 03/25/17 20:06 36.7 Intake and Output 03/25/17 03/25/17 03/26/17 Cumulative From/Thru 15:00 23:00 07:00 03/25/17 20:06 - 03/25/17 23:09 Intake Total 1000 ml 1000 ml Balance 1000 ml 1000 ml Intake IV Total 1000 ml 1000 ml Exam General: Alert, Oriented X3, Cooperative, No acute Distress Eyes: PERRLA, Scleral Anicteric Mouth: Mouth Normal, Mucous Membranes dry Neck: Supple, no Thyromegaly, trachea central. Chest & Lungs: Clear to auscultation & percussion, No adventitious breath sounds, no crackles, no wheeze Cardiovascular: Normal S1, Normal S2, No Murmurs/Rubs/Gallops, Regular Rate/ Rhythm, (No JVD, no peripheral edema) Pulses: Radial (present and equal), Dorsalis Pedi (present and equal) Abdomen: Soft, Non-tender, Non-distended, Normoactive bowel tones. Musculoskeletal: Unremarkable. Normal range of motion, no swollen or erythematous joints Extremities: No edema, no cyanosis, no clubbing. Skin: No rashes. Warm and dry, no erythematous areas Neurological: Grossly neurologically intact, has generalized weakness, Normal Speech, Sensation Intact Lymphatic: Lymph nodes Cervical and Axillary not palpable. Lab and Diagnostics Labs Laboratory Tests Test 03/25/17 20:15 03/25/17 20:40 03/25/17 21:05 White Blood Count 3.3th/mm3 (3.8-10.1) Red Blood Count 3.77mil/mm3 (3.90-5.20) Hemoglobin 9.7g/dL (12.0-15.6) Hematocrit 29.9% (35.0-46.0) Mean Corpuscular Volume 79.3fL (81-100) Mean Corpuscular Hemoglobin 25.7pg (27.0-35.0) Mean Corpuscular Hemoglobin Concent 32.4% (32.0-37.0) Red Cell Distribution Width 14.3% (12.3-15.4) Platelet Count 225bil/L (150-400) Neutrophils (%) (Auto) 67.8% (40-74) Lymphocytes (%) (Auto) 14.4% (14-46) Monocytes (%) (Auto) 13.5% (4-12) Eosinophils (%) (Auto) 3.7% (0-5) Basophils (%) (Auto) 0.3% (0-3) Sodium Level 130mEq/L (134-144) Potassium Level 3.2mEq/L (3.5-5.2) Chloride Level 94mEq/L (97-108) Carbon Dioxide Level 18mmol/L (18-29) Blood Urea Nitrogen 28mg/dL (8-27) Creatinine 1.34mg/dL (0.57-1.00) Estimat Glomerular Filtration Rate 57mL/min (>59) Glucose Level 141mg/dL (60-99) Calcium Level 8.7mg/dL (8.5-10.1) Magnesium Level 1.8mg/dL (1.6-2.6) Total Bilirubin 0.2mg/dL (0.0-1.2) Aspartate Amino Transf (AST/SGOT) 17U/L (0-50) Alanine Aminotransferase (ALT/SGPT) 8U/L (0-32) Alkaline Phosphatase 206U/L (25-165) Troponin T < 0.010ug/L (0.0-0.011) Total Protein 6.5g/dL (6.4-8.4) Albumin 2.4g/dL (3.4-5.0) Hold [place] Top Tube Received (Received) Urine Color Yellow (YELLOW) Urine Appearance Hazy (CLEAR,HAZY) Urine pH 5.0 (5.0-8.0) Urine Specific [place] 1.020 (1.003-1.035) Urine Protein Tracemg/dL (NEG,TRACE) Urine Glucose (UA) Negativemg/dL (NEGATIVE) Urine Ketones Negativemg/dL (NEGATIVE) Urine Occult Blood Negative (NEGATIVE) Urine Nitrite Negative (NEGATIVE) Urine Bilirubin Negative (NEGATIVE) Urine Urobilinogen Normalmg/dL (NORMAL) Urine Leukocyte Esterase Negative (NEGATIVE) Urine RBC 0-2/hpf (0-2) Urine WBC 0-5/hpf (0-5) Urine Epithelial Cells Few/hpf (NONE-MOD) Urine Crystals Amorphous urates (NONE Urine Bacteria Few/hpf (NONE-FEW) Urine Hyaline Casts None/lpf (NONE) Urine Granular Casts None seen (NONE SEEN) Urine Waxy Casts None seen (NONE SEEN) Urine Red Blood Cell Casts None seen (NONE SEEN) Urine White Blood Cell Casts None seen (NONE SEEN) Urine Mucus None seen (None Seen) Urine Trichomonas None seen (NONE SEEN) Urine Yeast None (NONE SEEN) Urinalysis Comment None Urine Culture Reflexed Not indicated Hold Urine Received (Received) Hold Red Top Tube Received (Received) Result Diagram: 03/25/[id number]/25/172014 X-Rays, CTs and MRIs CT BRAIN WITHOUT CONTRAST 03/25 IMPRESSION: 1. Ventriculomegaly which could be due to normal pressure hydrocephalus versus central volume loss. Please correlate with clinical findings. 2. Exam otherwise negative for acute disease process. Dictated by: Nazia Snow MD, PhD on 03/25/2017 at 20:58 Approved by: Nazia Snow MD, PhD on 03/25/2017 at 21:00 Assessment & Plan Erna Artis is a 62 year old female with Rheumatoid arthritis, Hypertension , Seizure disorder and tremors who presents to [facility] emergency department via EMS due confusion 1. Acute encephalopathy. Present on admission Etiology unclear but could be due to metabolic causes (Renal failure) or seizure episode (less likely). CT head negative for bleeding - checking Lamotrigine levels - avoid psychoactive medications - Physical therapy assessment 2. Acute Kidney injury. Present on admission Likely due to pre renal azotemia. Urinalysis showed trace protein. - avoid nephrotoxic insults in hospital - holding Lasix - IV fluids resuscitation 3 Systemic Inflammatory response with Leukopenia. Present on admission No clear source of infection. Leukopenia could be due to side effects of immuno suppressive medications - Blood cultures x 2 - Levaquin IV for empiric antibiotics - consider consult with Dr Hu in the morning 4 Hypertension, Chronic - continue Losartan 25 mg daily 5 Rheumatoid arthritis Denies any joint pain or inflammation - checking ESR and CRP - will give dose of IV Demerol - hold doses of Leflunomide and Cyclosporine at least for tonight 6 Seizure disorder - continue Lamotrigine 100 mg tid - follow Lamotrigine levels - Acetaminophen as needed for mild pain/fever/headache - Bowel regimen as needed - Antiemetic as needed Patient admitted under inpatient status with expected length of stay > 2 midnights for severity of present symptoms, complexities of treatment plan and risk for adverse event . Resuscitation Status: CPR: Attempt Resuscitation Chauncey Tavarez MD Mar 26, 2017 00:14 each nostril omeprazole 20 mg capsule,delayed release take 1 capsule by oral route every day 30 minutes to 1 hour before a meal ProAir HFA 90 mcg/actuation aerosol inhaler inhale 2 puff by inhalation route every 4 - 6 hours as needed propranolol 10 mg tablet take 1- 2 tablet by oral route 3 times every day propranolol ER 80 mg capsule,24 hr,extended release take 1 capsule by oral route every day Qvar 80 mcg/actuation Metered Aerosol oral inhaler inhale 1 puff by inhalation route 2 times every day Resuscitation Status: CPR: Attempt Resuscitation Chauncey Tavarez MD Mar 26, 2017 00:14
[2017-03-26] MEDS ORDERED: levoFLOXacin Inj 750 MG in IV Premix 1 EACH IV SCH (02:05)
[2017-03-26] MEDS: 0.9% Sodium Chloride 1,000 ML IV SCH ×3 (02:06→20:29)
[2017-03-26] MEDS: Heparin 5,000 Unit/mL Inj SUBQ SCH ×3 (02:06→17:09)
[2017-03-26] MEDS ORDERED: Dexamethasone 10 mg/mL Inj IVPUSH ONE (02:10)
--- NOTE | 2017-03-26 03:51 | NUR ---
Admit to [facility] received phone report from ED at 0105, pt arrived to floor accompanied by ED RN at 0151, pt able to ambulate from [place] to bed, unsteady gait noted, alert/oriented x3, reports of forgetfullness, has IV on L wrist K rider running, oriented to room and call light, at 0145, Dr. Daysi phipps, pt receives IVF, one time Decadron dose given, vitals taken, telemetry leads placed, call light in reach, alarm on for safety.
[2017-03-26 06:49] LABS: BASOPHILS % (AUTO) 0.4 % (0-3); Mean Corpuscular Hemoglobin 25.2 pg (27.0-35.0); Mean Corpuscular Volume 79.5 fL (81-100); NEUTROPHILS % (AUTO) 78.8 % (40-74); Platelet Count 213 bil/L (150-400)
[2017-03-26] MEDS ORDERED: [UNRECOGNIZED DRUG - CODE] PO ×2 (12:12)
[2017-03-26] MEDS ORDERED: LAMO100T2 PO (12:12)
[2017-03-26] MEDS ORDERED: FUR20 PO (12:12)
[2017-03-26] MEDS ORDERED: BECL8.7A6 INHALATION (12:13)
[2017-03-26] MEDS ORDERED: LORA10CA PO (12:19)
--- NOTE | 2017-03-26 12:28 | NUR ---
Med Rec Completed the Med Rec with patient. Paged hospitalist on Red Team to notify him that Med Rec is complete.
--- NOTE | 2017-03-26 13:11 | NUR ---
Social Work-screening: Data:EMR Reviewed. Pt is a 62 y/o female who was admitted on 03/26/17 for AMS per H&P. Pt's insurance is [employer] and PCP is FREDI Barron. EMR Reviewed. Pt's readmission score is 3. Pt resides at home where she remains independent with ADLS. PT evaluation is pending. Anticipate pt to likely discharge home when medically stable. SW will continue to follow if needs arise. Assessment:Pt who is independent at baseline. Plan:Pt to discharge home when medically stable via POV.PT evaluation is pending. No anticipated discharge needs. SW will continue to follow if needs arise. CHINTAN Hannon
[2017-03-26] MEDS ORDERED: Propranolol LA 80 mg ER24 Capsule PO SCH (17:05)
[2017-03-26] MEDS: predniSONE 20 mg Tablet PO SCH (18:19)
--- NOTE | 2017-03-26 19:40 | NUR ---
BP/Neuro Pt has been hypertensive today, dr morris aware and restarted home meds for this afternoon. Pt has also had improved neuro and vertigo symptoms. Pt has still had dizziness and loss of balance upon sitting and standing, but this has improved and pt c/t require less assistance.
[2017-03-26] MEDS: Albuterol 2.5 mg/3 mL Inhalation Solution NEB SCH (20:00)
[2017-03-26] MEDS: lamoTRIgine 100 mg Tablet PO SCH (20:29)
[2017-03-26] MEDS: Fluticasone 100 mCg Inhaler INHALATION SCH (20:30)
[2017-03-26] MEDS: cloNIDine 0.1 mg Tablet PO PRN (22:29)
[2017-03-27] MEDS: 0.9% Sodium Chloride 1,000 ML IV SCH ×2 (00:06→03:41)
[2017-03-27] MEDS: Heparin 5,000 Unit/mL Inj SUBQ SCH ×2 (00:54→07:58)
[2017-03-27 02:30] VITALS: BP 184/82; PULSE 64; RESP 18; O2SAT 94
--- NOTE | 2017-03-27 03:19 | NUR ---
BP BP at 2200 was 183/82. Gave catapres per orders for BP > sys 160. Pt concerned about effect catapres would have on BP and cause worsening dizziness, given she continues to be unsteady on her feet. Educated pt on possible side effects, but also the importance of lowing her BP as well. Pt aware and agreed to take catapres. Pt up to use BSC at 0130, recheck then BP was 184/82. Pt asymptomatic. Pt currently laying in bed, will continue to monitor BP.
[2017-03-27 06:01] VITALS: BP 176/66; PULSE 53; PULSE 80; RESP 18; O2SAT 98
[2017-03-27] MEDS: Albuterol 2.5 mg/3 mL Inhalation Solution NEB SCH ×2 (07:00→11:00)
[2017-03-27 07:43] VITALS: PULSE 70; RESP 16; O2SAT 98
[2017-03-27] MEDS: lamoTRIgine 100 mg Tablet PO SCH ×2 (07:56→14:30)
[2017-03-27] MEDS: predniSONE 20 mg Tablet PO SCH (07:56)
[2017-03-27] MEDS: Fluticasone 100 mCg Inhaler INHALATION SCH (07:57)
[2017-03-27] MEDS ORDERED: Fluticasone 0.05% 15 Spray/2 Gm 16 Gm Nasal Spray NASAL PRN (08:30)
[2017-03-27] MEDS ORDERED: Polyethylene Glycol (PEG) 17 Gm Powder PO SCH (08:30)
[2017-03-27 08:33] VITALS: BP 171/82; PULSE 60; RESP 18; O2SAT 99
[2017-03-27 08:47] LABS: Mean Corpuscular Hemoglobin 25.3 pg (27.0-35.0)
[2017-03-27 08:51] VITALS: PULSE 50
[2017-03-27 09:05] LABS: Unsaturated Iron Binding 93.7 ug/dL
--- NOTE | 2017-03-27 12:29 | PCM.DIMED ---
Discharge Instructions Date of Service Mar 27, 2017 Dates of Hospitalization Mar 26, 2017 at 00:41 Discharge Diagnosis Discharge Diagnosis Confusion, dizziness, probable rheumatoid arthritis flare, possible dehydration , hypertension uncontrolled Diet Discharge Diet: Low fat, Low Sodium, Heart Healthy Activity Discharge Activity: No restrictions Call your provider Call your provider for: Fever or Chills, Shortness of breath, Other (confusion) Patient Instructions Patient Instructions Make sure you see your primary care provider, and Appointments as soon as possible with both rheumatology and neurology. Follow-up Provider: Justa Wiley MD Follow-up with PCP in: 1 week Provider: Byron Thorpe MD Mid-level Provider (F9): Shante Priest Follow-up with Mid-level in: 1 week Attending's Statement Not entirely clear what happened with this patient. Complications of rheumatologic flare plus seizure disorder? ER since UTI but there is very little evidence of this, along with very little evidence of dehydration/AKA though she did respond to fluids and a dose of antibiotics. She needs close follow-up and possibly an EEG. lamotrigine, CCP, RF all pending on discharge. Felipe Ragsdale MD Mar 27, 2017 12:29
[2017-03-27 12:33] VITALS: BP 160/70; PULSE 59; RESP 16; O2SAT 98
[2017-03-27] MEDS ORDERED: PRED-508 PO (12:35)
[2017-03-27] MEDS ORDERED: AMLO5TAB2 PO (12:35)
[2017-03-27] MEDS: cloNIDine 0.1 mg Tablet PO PRN (12:50)
[2017-03-27] MEDS ORDERED: PRE20 PO (13:53)
--- NOTE | 2017-03-27 14:31 | NUR ---
Social Work: Readiness for Discharge D: EMR reviewed. Pt is on day 1 of hospitalization for AMS acute kidney injury per H&P. Per MD in AM multi-disciplinary rounds, pt is likely to discharge today. As of 03/27, PT notes that pt is ambulating 200-250 w/o assistive device and cleared stair training. PT is recommending pt return home via POV with HHPT. Pt is not homebound and does not qualify for HH. MD states that pt is medically stable and does not have any discharge needs. SW will meet with pt to discuss criterion that need to be met to receive HH (regarding being homebound v not homebound) and discuss other alternatives, such as outpt PT - if MD deems outpt PT a medical necessity. Pt will transport home via POV. SW does not anticipate any discharge needs at this time but will continue to follow for needs that may arise. A: Pt who is independent at baseline P: Pt will transport home via POV. SW does not anticipate any discharge needs at this time but will continue to follow for needs that may arise. CHINTAN Cash
--- NOTE | 2017-03-27 16:10 | NUR ---
Social Work: Discharge D: Pt to return home via POV at discharge. SW will continue to follow. A:Pt who is independent at baseline. P:Pt to discharge home today via POV. No further discharge needs identified. CHINTAN Cash
--- NOTE | 2017-03-27 16:35 | NUR ---
Discharge Pt discharged with friend at 1613. Plenty of time taken to address any pt questions and concerns, pt is very comfortable with current plan to follow up with appointments in neurology.
--- NOTE | 2017-03-27 18:57 | PCM.DC.MED ---
Discharge Summary Date of Service Mar 27, 2017 Dates of Hospitalization Date of Hospital Admission Mar 26, 2017 at 00:41 Date of Discharge: Mar 27, 2017 Providers: Admitting Physician: Chauncey Tavarez MD Primary Care Physician: Shante Priest Attending Physician: Chauncey Tavarez MD Diagnosis at Time of Discharge Diagnosis at Time of Discharge Confusion, dizziness, probable rheumatoid arthritis flare, possible dehydration , hypertension uncontrolled Consultations None Procedures XRay, CTs & MRIs CT BRAIN WITHOUT CONTRAST 03/25 IMPRESSION: 1. Ventriculomegaly which could be due to normal pressure hydrocephalus versus central volume loss. Please correlate with clinical findings. 2. Exam otherwise negative for acute disease process. Dictated by: Nazia Snow MD, PhD on 03/25/2017 at 20:58 Approved by: Nazia Snow MD, PhD on 03/25/2017 at 21:00 Brief History 62 year old female with Rheumatoid arthritis, Hypertension, Seizure disorder and tremors who presents to [facility] emergency department via EMS due confusion Patient was a poor historian with difficulty remembering events prior to admission. Per EMS, her friend called medics after patient called her friend saying she didn't know what was going on around her. Patient recalled last thing she remembers is coming home and sitting in her chair. She states "All I know is I was tired. Apparently I called a couple people". Denies any diarrhea or vomiting. Her only complaints are gradually worsening fatigue onset a few weeks ago, nausea with decreased appetite and lightheadedness. She denies loss of consciousness. She denies chest pain, fever, chills, vision changes, shortness of breath. Denies any sick contacts as she lives alone. Denies any new medications. Case discussed with Dr Mora, CT head negative. Lab results consistent with dehydration and Renal failure. Hospital Course 62 year old female presents to [facility] emergency department via EMS due confusion 03/25. What she told me was that she had been getting weaker for weeks not eating and drinking well and then has been walking a block much more than she normally does and came home extremely tired and that was when she called her friend for help and does not recall doing that. After a couple good night sleep, her symptoms seem to have dissipated. We do not have a good physiologic explanation for the clinical presentation. Likely this was a psychogenic event as has previously occurred. 03/26 patient was already awake and lucid. What sounds like to me as perhaps she had been getting weaker from her rheumatologic process I gave her prednisone 40 mg. She continued hydrating overnight and got much better. 03/27 I spoke to her insurance defense attorney Dr. Alexander who will follow up on the CCP and rheumatoid factor tests that are still pending. She is going out on prednisone 20 mg daily until he sees her. As far as her encephalopathy and possible seizure disorder, patient is probably on lamotrigine for mood stabilization. She has an extensive psychiatric history and spoke with her neurologist Dr. 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 At this point in time not pursuing an EEG and any further neurologic workup for that reason nor does she need to follow up with earlier than her August appointment that was already scheduled. I did adjust her hypertensive medication she has been hypertensive throughout. And gave her prednisone on discharge with follow-up with primary care provider for blood pressure, and insurance defense attorney for the weakness that seems like it could be a rheumatologic flare. 1. Acute encephalopathy. 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 CT head negative for bleeding - checking Lamotrigine levels - avoid psychoactive medications - Physical therapy assessment 2. Acute Kidney injury. Present on admission-baseline creatinine is approximately 1.2 I do not think this was prerenal anything. I think it is chronic kidney disease. Likely due to pre renal azotemia. Urinalysis showed trace protein. - avoid nephrotoxic insults in hospital - holding Lasix - IV fluids resuscitation 3 Systemic Inflammatory response with Leukopenia. Present on admission- not sure I agree with this at all No clear source of infection. Leukopenia could be due to side effects of immuno suppressive medications - Blood cultures x 2 - Levaquin IV for empiric antibiotics - consider consult with Dr Hu in the morning 4 Hypertension, Chronic-blood pressure ran 160-190 I added amlodipine to her regimen, continuing propranolol 40 mg twice a day in addition to the losartan 5 Rheumatoid arthritis- prednisone pulse ESR was greater than 144 I resumed her DMARDs, gave her prednisone 40 mg 1 time and she is discharging on and has follow-up with her insurance defense attorney next week Dr. Alexander. 6 Seizure disorder-she does not truly have seizure disorder, lamotrigine is likely for mood stabilization, according to neurologist who is seen her doctor Nikky these were thought to be psychogenic. - continue Lamotrigine 100 mg tid - follow Lamotrigine levels - Acetaminophen as needed for mild pain/fever/headache - Bowel regimen as needed - Antiemetic as needed Patient admitted under inpatient status with expected length of stay > 2 midnights for severity of present symptoms, complexities of treatment plan and risk for adverse event . Exam Vital Signs (Last) Date Time Temp Pulse Resp B/P Pulse Ox O2 Delivery O2 Flow Rate FiO2 03/27/17 12:33 36.5 59 16 160/70 98 Room Air Test 03/25/17 20:15 03/25/17 20:40 03/25/17 21:05 03/26/17 06:25 Erythrocyte Sedimentation Rate > 140mm/hr (0-40) Magnesium Level 1.8mg/dL (1.6-2.6) Troponin T < 0.010ug/L (0.0-0.011) Hold [place] Top Tube Received (Received) Urine Color Yellow (YELLOW) Urine Appearance Hazy (CLEAR,HAZY) Urine pH 5.0 (5.0-8.0) Urine Specific [place] 1.020 (1.003-1.035) Urine Protein Tracemg/dL (NEG,TRACE) Urine Glucose (UA) Negativemg/dL (NEGATIVE) Urine Ketones Negativemg/dL (NEGATIVE) Urine Occult Blood Negative (NEGATIVE) Urine Nitrite Negative (NEGATIVE) Urine Bilirubin Negative (NEGATIVE) Urine Urobilinogen Normalmg/dL (NORMAL) Urine Leukocyte Esterase Negative (NEGATIVE) Urine RBC 0-2/hpf (0-2) Urine WBC 0-5/hpf (0-5) Urine Epithelial Cells Few/hpf (NONE-MOD) Urine Crystals Amorphous urates (NONE Urine Bacteria Few/hpf (NONE-FEW) Urine Hyaline Casts None/lpf (NONE) Urine Granular Casts None seen (NONE SEEN) Urine Waxy Casts None seen (NONE SEEN) Urine Red Blood Cell Casts None seen (NONE SEEN) Urine White Blood Cell Casts None seen (NONE SEEN) Urine Mucus None seen (None Seen) Urine Trichomonas None seen (NONE SEEN) Urine Yeast None (NONE SEEN) Urinalysis Comment None Urine Culture Reflexed Not indicated Hold Urine Received (Received) C-Reactive Protein 8.1mg/dL (0.0-0.5) Thyroid Stimulating Hormone (TSH) 1.490uIU/mL (0.450-4.500) Hold Red Top Tube Received (Received) Neutrophils (%) (Auto) 78.8% (40-74) Lymphocytes (%) (Auto) 12.4% (14-46) Monocytes (%) (Auto) 6.0% (4-12) Eosinophils (%) (Auto) 2.0% (0-5) Basophils (%) (Auto) 0.4% (0-3) Total Bilirubin 0.3mg/dL (0.0-1.2) Aspartate Amino Transf (AST/SGOT) 16U/L (0-50) Alanine Aminotransferase (ALT/SGPT) 8U/L (0-32) Alkaline Phosphatase 192U/L (25-165) Total Protein 5.7g/dL (6.4-8.4) Albumin 2.5g/dL (3.4-5.0) Procalcitonin 0.21ng/mL (0.00-0.08) Test 03/27/17 08:19 White Blood Count 4.2th/mm3 (3.8-10.1) Red Blood Count 3.60mil/mm3 (3.90-5.20) Hemoglobin 9.1g/dL (12.0-15.6) Hematocrit 28.8% (35.0-46.0) Mean Corpuscular Volume 80.0fL (81-100) Mean Corpuscular Hemoglobin 25.3pg (27.0-35.0) Mean Corpuscular Hemoglobin Concent 31.6% (32.0-37.0) Red Cell Distribution Width 14.4% (12.3-15.4) Platelet Count 256bil/L (150-400) Reticulocyte Count,Calculated 2.1% (0.6-2.6) Sodium Level 139mEq/L (134-144) Potassium Level 4.4mEq/L (3.5-5.2) Chloride Level 107mEq/L (97-108) Carbon Dioxide Level 17mmol/L (18-29) Blood Urea Nitrogen 22mg/dL (8-27) Creatinine 1.01mg/dL (0.57-1.00) Estimat Glomerular Filtration Rate 80mL/min (>59) Glucose Level 142mg/dL (60-99) Calcium Level 8.4mg/dL (8.5-10.1) Iron Level 97ug/dL (35-150) Total Iron Binding Capacity 191ug/dL (250-450) Percent Iron Saturation 51%sat (15-50) Unsaturated Iron Binding 93.7ug/dL Discharge Medications Discharge Medications Albuterol HFA (Proair HFA) 8.5 Gm Hfa.aer.ad 2 PUFFS INHALATION QID 2 puffs with spacer every 6 hours for the next week then decrease use as needed. Please dispense with spacer and instructions Prescribed by: LIBBY REDD MD Amlodipine (Amlodipine) 5 Mg Tablet 5 MG PO DAILY Prescribed by: JOVITA HODGE MD Beclomethasone Dipropionate (Qvar) 8.7 Gm Aer.w.adap 1 PUFF INHALATION BID ( Reported) Clobetasol Propionate/Emoll (Clobetasol Emollient 0.05% Crm) 15 Gm Cream..g. 1 APPL TOP BID (Reported) Cyclosporine (Cyclosporine) 100 Mg Capsule 200 MG PO MORNING (Reported) Cyclosporine (Cyclosporine) 100 Mg Capsule 100 MG PO Evening (Reported) Furosemide (Furosemide) 20 Mg Tab 40 MG PO DAILY (Reported) Lamotrigine (Lamotrigine) 100 Mg Tablet 100 MG PO TID (Reported) Leflunomide (Leflunomide) 20 Mg Tablet 20 MG PO DAILY (Reported) Loratadine (Claritin) 10 Mg Capsule 10 MG PO DAILY (Reported) Losartan Potassium (Losartan Potassium) 25 Mg Tablet 25 MG PO DAILY (Reported) Polyethylene Glycol 3350 (Miralax) 17 Gm Powd.pack 17 GM PO DAILY (Reported) Prednisone (PredniSONE) 20 Mg Tablet 20 MG PO DAILY Prescribed by: JOVITA HODGE MD Propranolol ER (Propranolol ER) 80 Mg Cap.sa.24h 80 MG PO DAILY (Reported) As needed Mometasone Furoate (Nasonex) 17 Gm [place].pump 2 SPRAY NS DAILY PRN PRN . ( Reported) Followup Plan Disposition: To home Discharge Diet: Low fat, Low Sodium, Heart Healthy Discharge Activity: No restrictions Patient Instructions Make sure you see your primary care provider, and Appointments as soon as possible with both rheumatology and neurology. Follow-up Provider: Justa Wiley MD Follow-up with PCP in: Other (as previously scheduled in August is fine) Provider: Byron Thorpe MD Follow-up in: 1 week (to be seen next week) Mid-level Provider: Shante Priest Follow-up with Mid-level in: 1 week Time spent Greater than 30 minutes Attending Statement PCP should follow up on blood pressure. copies to: Shante Priest; Byron Thorpe MD, Andris E MD Mar 27, 2017 18:57
[2017-03-28 06:17] LABS: Vitamin B12 487 pg/mL (211-946)
== END 2017-03-27 16:13 | disposition home or self-care (01) | DRG 72 ==
LOC: SED 19:53 → MOC 03-26 00:41
PROVIDERS: ADMIT Hospitalist; ATTEND Hospitalist
DX: G93.40 Encephalopathy, unspecified (principal); M06.9 Rheumatoid arthritis, unspecified; I10 Essential (primary) hypertension; D72.819 Decreased white blood cell count, unspecified; G40.909 Epilepsy, unspecified, not intractable, without status epilepticus; E86.0 Dehydration

== ENCOUNTER → 2017-05-26 | Day surgery (SDC) | payer MEDICARE ==
[~2017-05-26] MED LIST changes: -ALBU18HF INH; +AMLO5TAB2 PO; +ASCO-294 PO; -ASCO100089 PO; -DEX1 PO; +DXM4T PO; +FUR20 PO; -FURO40TA4 PO; +KEN25CR EXT; +LORA10CA PO; -LORA10TA7 PO; +PRE20 PO; -PROP10TA8 PO; +[UNRECOGNIZED DRUG - CODE] PO; -[UNRECOGNIZED DRUG - CODE] PO
--- NOTE | 2017-05-26 11:40 | DRSVH ---
PROCEDURE: X-RAY LUMBAR PUNCTURE WITH ISOTOPE INJECT INDICATIONS: ATAXIA;URINARY INCONTINENCE;MEMORY LOSS TECHNIQUE: The indications, alternatives, benefits, risks, and complications were explained to the patient. Rodney mejia informed consent was obtained and placed in the chart. The patient was placed in a prone positi on on the fluoroscopy table, and a level was chosen for percutaneous access under fluoroscopic guidan ce. The site was prepped and draped in a sterile fashion. After local anaesthetic, a spinal needle was then used to enter the intrathecal space, with return of cerebrospinal fluid. After obtaining sufficient fluid, the needle was then withdrawn, and a bandage applied to the punctur e site. FINDINGS: Puncture level: Right paramedian L3-4 interlaminar notch Needle: Spinal needle. Opening pressure: . Opening pressure was approximately 10 cm water. CSF volume and description: Not requested Medications: 1% lidocaine for anaesthesia. Complications: None. Laboratories: As ordered by referring clinician. IMPRESSION: Successful fluoroscopically guided lumbar puncture and thereafter radioisotope for nucle ar medicine cisternography was successfully instilled into the CSF space. Dictated by: Oscar Rehman M.D. on 05/26/2017 at 11:32 Approved by: Oscar Rehman M.D. on 05/26/2017 at 11:38
--- NOTE | 2017-05-28 22:40 | DRSUS ---
PROCEDURE: NM CISTERNOGRAM (60807) RADIOPHARMACEUTICAL: 1.08 mCi In-111 DTPA by lumbar subarachnoid injection. INDICATIONS: ATAXIA, URINARY INCONTINENCE, MEMORY LOSS TECHNIQUE: The radiopharmaceutical was injected into the lumbar subarachnoid space. Posterior images of the spi ne were obtained 4 hours later. Anterior and right lateral images of the head were obtained at 4 trina rs and 24 hours. COMPARISON: [facility], MR, MR BRAIN WO CON, 04/25/2017, 19:39. FINDINGS: Immediate imaging: No extravasation at injection site. There is tracer within the lumbar thecal sac. Delayed imaging: At 4 hours, tracer has reached basal cisterns. There is marked reflux of tracer into the cerebral ventricles at 4 hours, which persists at 24 hours, with incomplete clearance trace acti vity from cerebral ventricles by 48 hours. There is delayed tracer ascent to the cerebral convexity t hrough 48 hours. IMPRESSION: The scintigraphic findings are highly suggestive of normal pressure hydrocephalus. Dictated by: Helen Carter M.D. on 05/28/2017 at 17:42 Approved by: Helen Carter M.D. on 05/28/2017 at 22:38
== END | disposition home or self-care (01) ==
LOC: SNM 07:30 → SOUO 08:00
PROVIDERS: ATTEND Specialist
DX: R27.0 Ataxia, unspecified (principal); R32 Unspecified urinary incontinence; R41.3 Other amnesia